=== PATIENT | female | born 1955 | race Caucasian/White ===

== ENCOUNTER 2018-09-05 10:56 | Observation (INO) | payer OTHER ==
[2018-09-05] MEDS ORDERED: FOLIC ACID 5 MG/ML 10 ML VIAL IM STA (11:17)
[2018-09-05] MEDS ORDERED: THIAMINE 100 MG/ML 2 ML VIAL IVP STA (11:17)
[2018-09-05] MEDS ORDERED: SODIUM CHLORIDE 0.9% 1,000 ML IV ONE (11:17)
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
[2018-09-05 11:47] LABS: Basophils % (A) 1 %; Eosinophils # (A) 0.2 k/uL (0-0.7); Eosinophils % (A) 3 %; HCT 34.5 % (34.0-46.0); HGB 10.9 gm/dL (11.4-16.0); Lymphocytes # (A) 0.7 k/uL (1.0-4.8); Lymphocytes % (A) 11 %; MCH 32.4 pg (25.0-35.0); MCHC 31.7 g/dL (31.0-37.0); MCV 102.2 fL (80.0-100.0); Macrocytosis Slight; Mean Platelet Volume 7.3; Monocytes # (A) 0.4 k/uL (0-1.0); Monocytes % (A) 6 %; Neutrophils # (A) 5.1 k/uL (1.3-7.7); Neutrophils % (A) 77 %; Platelet Count 472 k/uL (150-450); RBC 3.38 m/uL (3.80-5.40); RDW 14.2 % (11.5-15.5); WBC 6.6 k/uL (3.8-10.6)
[2018-09-05 11:58] LABS: ALT 20 U/L (9-52); AST 23 U/L (14-36); African American GFR (CKD) >90 (>60 ml/min/1.73 sqM); Albumin 3.1 g/dL (3.5-5.0); Alkaline Phosphatase 243 U/L (38-126); Anion Gap 15 mmol/L; Blood Urea Nitrogen 5 mg/dL (7-17); Calcium 8.6 mg/dL (8.4-10.2); Carbon Dioxide 19 mmol/L (22-30); Chloride 104 mmol/L (98-107); Creatine Kinase 54 U/L (30-135); Glucose 89 mg/dL (74-99); Sodium 138 mmol/L (137-145); Total Bilirubin 0.5 mg/dL (0.2-1.3); Total Protein 5.5 g/dL (6.3-8.2)
[2018-09-05 12:02] LABS: Partial Thromboplastin Time 24.3 sec (22.0-30.0); Prothrombin Time 10.3 sec (9.0-12.0)
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
--- NOTE | 2018-09-05 12:10 | XR ---
EXAMINATION TYPE: XR chest 2V DATE OF EXAM: 09/05/2018 HISTORY: altered mental status. REFERENCE: Previous study dated 07/16/2015. FINDINGS: There has been interval sideplate and screw fixation of the proximal left humerus. There is evidence of an old fracture of the distal left clavicle. Heart size is upper limits of normal. There is some left basilar airspace disease either representing atelectasis or pneumonia. The right lung is clear. IMPRESSION: 1. LEFT BASILAR AIRSPACE DISEASE WITH A SMALL ASSOCIATED EFFUSION. 2. BORDERLINE CARDIOMEGALY. 3. POSTSURGICAL CHANGE.
[2018-09-05] MEDS ORDERED: POTASSIUM CHLORIDE ER 10 MEQ TAB.ER.PRT PO STA (12:56)
[2018-09-05] MEDS ORDERED: POTASSIUM CHLORIDE 20 MEQ in WATER FOR INJECTION 1 100ML.BAG IVPB STA (12:56)
[2018-09-05 13:10] LABS: Appearance,Urine Cloudy (Clear); Bilirubin,Urine 1+ (Negative); Blood,Urine Negative (Negative); Color,Urine Yellow; Glucose,Urine (UA) Negative (Negative); Ketones,Urine 4+ (Negative); Leukocyte Esterase,Urine Negative (Negative); Mucus,Urine Many /hpf; Nitrite,Urine Negative (Negative); Protein,Urine 1+ (Negative); RBC,Urine 1 /hpf (0-5); Specific Gravity,Urine 1.021 (1.001-1.035); Squamous Epithelial Cell,Urine 2 /hpf (0-4)
[2018-09-05 13:17] LABS: Amphetamine Screen,Urine Not Detected (NotDetected); Barbiturate Screen,Urine Detected (NotDetected); Benzodiazepines Screen,Urine Detected (NotDetected); Cocaine Screen,Urine Not Detected (NotDetected); Methadone Screen, Urine Not Detected (NotDetected); Opiate Screen,Urine Not Detected (NotDetected); Oxycodone Screen, Urine Not Detected (NotDetected); Phencyclidine Screen,Urine Not Detected (NotDetected); Tricyclic Antidepressant,Urine Not Detected (NotDetected); Urn Cannabinoid Scrn Not Detected (NotDetected)
[2018-09-05] MEDS ORDERED: cefTRIAXone IN SWFI 1,000 MG/10 ML SYRINGE IVP STA (14:47)
[2018-09-05] MEDS ORDERED: PNEUMONIA PROTOCOL UTILIZED 1 EACH MISC PO PRN (14:49)
[2018-09-05] MEDS ORDERED: AZITHROMYCIN 500 MG in SODIUM CHLORIDE 0.9% 250 ML IVPB STA (14:49)
[2018-09-05] MEDS ORDERED: POLYETHYLENE GLYCOL 3350 17 GM POWD.PACK PO PRN (14:51)
[2018-09-05] MEDS ORDERED: LORazepam 2 MG/ML INJ IV STA (15:29)
[2018-09-05] MEDS ORDERED: Potassium Replacement Protocol 1 EACH MISC MISCELLANE PRN (16:44)
[2018-09-05] MEDS: SODIUM CHLORIDE 0.9% 1,000 ML IV SCH (17:00)
[2018-09-05] MEDS: MIRTAZAPINE 15 MG TAB PO SCH (17:36)
[2018-09-05] MEDS: ALPRAZolam 0.5 MG TAB PO PRN (18:10)
[2018-09-05] MEDS ORDERED: LORazepam 2 MG/ML INJ IV PRN (18:20)
[2018-09-05] MEDS: chlordiazePOXIDE 5 MG CAPSULE PO SCH (21:19)
[2018-09-05] MEDS: AMANTADINE HCL 100 MG/10 ML CUP PO SCH (21:20)
[2018-09-05] MEDS: GABAPENTIN 100 MG CAP PO SCH (21:30)
[2018-09-05] MEDS: MELATONIN 5 MG TABLET PO SCH (21:32)
[2018-09-06] MEDS: chlordiazePOXIDE 5 MG CAPSULE PO SCH ×3 (02:46→20:28)
[2018-09-06] MEDS: GABAPENTIN 100 MG CAP PO SCH ×2 (02:47→20:28)
[2018-09-06] MEDS: MELATONIN 5 MG TABLET PO SCH ×2 (02:47→20:28)
[2018-09-06] MEDS: ACETAMINOPHEN TAB 325 MG TAB PO PRN (05:50)
[2018-09-06] MEDS: SODIUM CHLORIDE 0.9% 1,000 ML IV SCH ×2 (06:13→20:29)
[2018-09-06] MEDS: THIAMINE 100 MG TAB PO SCH (07:32)
[2018-09-06] MEDS: ALPRAZolam 0.5 MG TAB PO PRN (07:32)
[2018-09-06] MEDS: ASPIRIN 81 MG PO SCH (07:32)
[2018-09-06] MEDS: CYANOCOBALAMIN 500 MCG TAB PO SCH (07:33)
[2018-09-06] MEDS: AZITHROMYCIN 500 MG TAB PO SCH (07:33)
[2018-09-06] MEDS: PROPRANOLOL LA 60 MG CAP.SA.24H PO SCH (07:33)
[2018-09-06] MEDS: AMANTADINE HCL 100 MG/10 ML CUP PO SCH ×2 (07:33→20:28)
[2018-09-06] MEDS ORDERED: MENTHOL TOPICAL SCH (09:00)
[2018-09-06] MEDS ORDERED: METHYL SALICYLATE TOPICAL SCH (09:00)
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
[2018-09-06] MEDS: LORazepam 2 MG/ML INJ IV PRN ×2 (11:17→16:34)
[2018-09-06] MEDS: LIDOCAINE 5% PATCH TOPICAL SCH (11:18)
[2018-09-06] MEDS: MIRTAZAPINE 15 MG TAB PO SCH (16:33)
[2018-09-07] MEDS: LORazepam 2 MG/ML INJ IV PRN ×2 (01:05→10:11)
[2018-09-07] MEDS: SODIUM CHLORIDE 0.9% 1,000 ML IV SCH ×2 (05:25→16:46)
[2018-09-07] MEDS: AMANTADINE HCL 100 MG/10 ML CUP PO SCH ×2 (08:16→21:04)
[2018-09-07] MEDS: ASPIRIN 81 MG PO SCH (08:16)
[2018-09-07] MEDS: AZITHROMYCIN 500 MG TAB PO SCH (08:16)
[2018-09-07] MEDS: PROPRANOLOL LA 60 MG CAP.SA.24H PO SCH (08:16)
[2018-09-07] MEDS: THIAMINE 100 MG TAB PO SCH (08:18)
[2018-09-07] MEDS: CYANOCOBALAMIN 500 MCG TAB PO SCH (08:18)
[2018-09-07] MEDS: chlordiazePOXIDE 5 MG CAPSULE PO SCH ×2 (08:18→21:04)
[2018-09-07] MEDS: LIDOCAINE 5% PATCH TOPICAL SCH (08:18)
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
[2018-09-07] MEDS: MIRTAZAPINE 15 MG TAB PO SCH (16:51)
[2018-09-07] MEDS: QUEtiapine 25 MG TAB PO SCH (21:03)
[2018-09-07] MEDS: MELATONIN 5 MG TABLET PO SCH (21:03)
[2018-09-07] MEDS: GABAPENTIN 100 MG CAP PO SCH (21:03)
[2018-09-07] MEDS: LORazepam 0.5 MG TAB PO PRN (23:08)
[2018-09-08] MEDS: SODIUM CHLORIDE 0.9% 1,000 ML IV SCH ×2 (05:26→17:28)
[2018-09-08] MEDS: ASPIRIN 81 MG PO SCH (08:04)
[2018-09-08] MEDS: THIAMINE 100 MG TAB PO SCH (08:04)
[2018-09-08] MEDS: AZITHROMYCIN 500 MG TAB PO SCH (08:04)
[2018-09-08] MEDS: CYANOCOBALAMIN 500 MCG TAB PO SCH (08:04)
[2018-09-08] MEDS: AMANTADINE HCL 100 MG/10 ML CUP PO SCH ×2 (08:04→20:34)
[2018-09-08] MEDS: LIDOCAINE 5% PATCH TOPICAL SCH (08:05)
[2018-09-08] MEDS: PROPRANOLOL LA 60 MG CAP.SA.24H PO SCH (08:06)
[2018-09-08] MEDS: chlordiazePOXIDE 5 MG CAPSULE PO SCH ×2 (08:06→20:33)
[2018-09-08] MEDS ORDERED: ERGOCALCIFEROL 50,000 UNIT CAP PO SCH (09:00)
[2018-09-08] MEDS: LORazepam 0.5 MG TAB PO PRN (09:24)
--- NOTE | 2018-09-08 10:00 | P.PN ---
Subjective Progress Note Date: 09/08/18 Principal diagnosis: TBI h/o SDH, resolved No acute events O/N. Patient again wishes to go home. States she has a to go to at 1pm and that her cousin . Also c/o losing jewelry in the hospital. No new neuro c/o. Objective - Vital Signs Vital signs: Vital Signs Temp 98.0 F 09/08/18 06:20 Pulse 69 09/08/18 06:20 Resp 16 09/08/18 08:00 BP 97/58 09/08/18 06:20 Pulse Ox 97 09/08/18 06:20 Intake & Output 09/07/18 09/08/18 09/08/18 18:59 06:59 18:59 Intake Total 200 Balance 200 Intake: Oral 200 Other: Voiding Method Bedside Commode Bedside Commode # Voids 1 2 # Bowel Movements 1 2 - Exam Gen NAD Pleasant and cooperative MS A+Ox2 Rambling and tangential speech though very focused on leaving the h ospital CN II-XII grossly intact no nystagmus Motor Normal bulk/tone No tremors NARAYANAN x4 Sens Intact to LT x4 Coord Not tested DTRs 2+/4 sym throughout Gait Deferred - Labs CBC & Chem 7: 09/05/18 11:28 09/05/18 11:28 Labs: Microbiology - Last 24 Hours (Table) 09/05/18 15:15 Blood Culture - Preliminary Blood No Growth after 48 hours 09/07/18 B12 454 RPR NR Assessment and Plan Assessment: AMS h/o TBI/SDH- SDH has resolved. TBI and behavioral symptoms will take longer to resolve. Plan: -CT Head wo cont reviewed with patient and primary team. SDH has resolved and she does not have evidence of new ICH or anything else acute -Agree with prn instead of scheduled benzodiazepine -Would recommend psychiatry's input for behavioral management -Continue thiamine, B12 and amantadine -Metabolic labs all unrevealing -Fall precautions -PT/OT/SP. Will need continued rehab -d/w patient and primary team. All questions answered -No further inpatient neuro recs at this time. Will revisit prn. Thank you again for this consultation. Please call with ?. Time with Patient: Less than 30 (Time spent in direct patient care, greater than 50% of which was spent in [id number] counseling and coordination of care: 25 minutes.)
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
[2018-09-08 16:18] VITALS: BMI 22.4
[2018-09-08] MEDS: MIRTAZAPINE 15 MG TAB PO SCH (17:27)
[2018-09-08] MEDS: GABAPENTIN 100 MG CAP PO SCH (20:33)
[2018-09-08] MEDS: ACETAMINOPHEN TAB 325 MG TAB PO PRN (20:33)
[2018-09-08] MEDS: MELATONIN 5 MG TABLET PO SCH (20:33)
[2018-09-08] MEDS: QUEtiapine 25 MG TAB PO SCH (20:33)
[2018-09-09] MEDS: ACETAMINOPHEN TAB 325 MG TAB PO PRN (04:32)
[2018-09-09] MEDS: AMANTADINE HCL 100 MG/10 ML CUP PO SCH ×3 (04:34→21:28)
[2018-09-09] MEDS: chlordiazePOXIDE 5 MG CAPSULE PO SCH ×3 (04:35→21:29)
[2018-09-09] MEDS: MELATONIN 5 MG TABLET PO SCH ×2 (04:36→21:29)
[2018-09-09] MEDS: QUEtiapine 25 MG TAB PO SCH ×2 (04:36→21:29)
[2018-09-09] MEDS: GABAPENTIN 100 MG CAP PO SCH ×2 (04:36→21:29)
[2018-09-09] MEDS: AZITHROMYCIN 500 MG TAB PO SCH (06:55)
[2018-09-09] MEDS: THIAMINE 100 MG TAB PO SCH (06:55)
[2018-09-09] MEDS: LORazepam 0.5 MG TAB PO PRN (06:55)
[2018-09-09] MEDS: ASPIRIN 81 MG PO SCH (06:55)
[2018-09-09] MEDS: CYANOCOBALAMIN 500 MCG TAB PO SCH (06:56)
[2018-09-09] MEDS: PROPRANOLOL LA 60 MG CAP.SA.24H PO SCH (06:57)
[2018-09-09] MEDS: SODIUM CHLORIDE 0.9% 1,000 ML IV SCH (06:58)
[2018-09-09] MEDS: LIDOCAINE 5% PATCH TOPICAL SCH (06:58)
[2018-09-09] MEDS: MIRTAZAPINE 15 MG TAB PO SCH (15:15)
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
[2018-09-09] MEDS ORDERED: LORazepam 2 MG/ML INJ IV STA (19:18)
[2018-09-09] MEDS ORDERED: HALOPERIDOL LACTATE 5 MG/ML 1 ML VIAL IM ONE (21:39)
[2018-09-10] MEDS: CYANOCOBALAMIN 500 MCG TAB PO SCH (07:56)
[2018-09-10] MEDS: ASPIRIN 81 MG PO SCH (07:56)
[2018-09-10] MEDS: PROPRANOLOL LA 60 MG CAP.SA.24H PO SCH (07:57)
[2018-09-10] MEDS: THIAMINE 100 MG TAB PO SCH (07:57)
[2018-09-10] MEDS: chlordiazePOXIDE 5 MG CAPSULE PO SCH ×2 (07:57→20:33)
[2018-09-10] MEDS: AZITHROMYCIN 500 MG TAB PO SCH (07:57)
[2018-09-10] MEDS: LIDOCAINE 5% PATCH TOPICAL SCH ×3 (07:57→10:05)
[2018-09-10] MEDS: AMANTADINE HCL 100 MG/10 ML CUP PO SCH (07:57)
[2018-09-10] MEDS: LORazepam 0.5 MG TAB PO PRN (11:05)
[2018-09-10] MEDS: ACETAMINOPHEN TAB 325 MG TAB PO PRN (15:19)
[2018-09-10] MEDS: MIRTAZAPINE 15 MG TAB PO SCH (16:22)
[2018-09-10] MEDS: MELATONIN 5 MG TABLET PO SCH (20:33)
[2018-09-10] MEDS: GABAPENTIN 100 MG CAP PO SCH (20:33)
[2018-09-10] MEDS: QUEtiapine 25 MG TAB PO SCH (20:33)
[2018-09-11] MEDS: AMANTADINE HCL 100 MG/10 ML CUP PO SCH ×2 (01:11→07:34)
[2018-09-11] MEDS: LORazepam 0.5 MG TAB PO PRN (01:12)
[2018-09-11 06:39] VITALS: RESP 17; TEMP 98
[2018-09-11] MEDS: THIAMINE 100 MG TAB PO SCH (07:33)
[2018-09-11] MEDS: AZITHROMYCIN 500 MG TAB PO SCH (07:34)
[2018-09-11] MEDS: ASPIRIN 81 MG PO SCH (07:34)
[2018-09-11] MEDS: PROPRANOLOL LA 60 MG CAP.SA.24H PO SCH (07:34)
[2018-09-11] MEDS: CYANOCOBALAMIN 500 MCG TAB PO SCH (07:34)
[2018-09-11] MEDS: chlordiazePOXIDE 5 MG CAPSULE PO SCH (07:34)
[2018-09-11 07:39] VITALS: BP 111/63; PULSE 86
[2018-09-11] MEDS: LIDOCAINE 5% PATCH TOPICAL SCH (07:40)
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
[2018-09-11 10:08] LABS: HCT 37.6 % (34.0-46.0); HGB 11.9 gm/dL (11.4-16.0); Hypochromasia Slight; MCH 32.8 pg (25.0-35.0); MCHC 31.7 g/dL (31.0-37.0); MCV 103.5 fL (80.0-100.0); Macrocytosis Slight; Mean Platelet Volume 7.6; Platelet Count 338 k/uL (150-450); RBC 3.63 m/uL (3.80-5.40); WBC 7.6 k/uL (3.8-10.6)
[2018-09-11 10:24] LABS: ALT 15 U/L (9-52); AST 18 U/L (14-36); African American GFR (CKD) >90 (>60 ml/min/1.73 sqM); Alkaline Phosphatase 209 U/L (38-126); Anion Gap 15 mmol/L; Blood Urea Nitrogen 3 mg/dL (7-17); Calcium 8.9 mg/dL (8.4-10.2); Carbon Dioxide 21 mmol/L (22-30); Chloride 106 mmol/L (98-107); Glucose 129 mg/dL (74-99); Potassium 2.9 mmol/L (3.5-5.1); Sodium 142 mmol/L (137-145); Total Bilirubin 0.4 mg/dL (0.2-1.3); Total Protein 5.4 g/dL (6.3-8.2)
[2018-09-11] MEDS: POTASSIUM CHLORIDE ER 20 MEQ TAB.ER PO SCH ×3 (11:21→13:23)
== END 2018-09-11 14:15 ==
LOC: EC 10:56 → UNDOADMOB 14:50 → 4MS4W 14:50 → INTOOBSV 09-07 13:25 → OBSVTOIN 09-07 13:25 → UNDODISIN 09-11 14:15
PROVIDERS: ADMIT Internal Medicine; ATTEND Internal Medicine
DX: J18.9 Pneumonia, unspecified organism (principal); G93.41 Metabolic encephalopathy; F33.9 Major depressive disorder, recurrent, unspecified; F10.231 Alcohol dependence with withdrawal delirium; E86.0 Dehydration; I10 Essential (primary) hypertension; R62.7 Adult failure to thrive; S06.5X9D Traumatic subdural hemorrhage with loss of consciousness of unspecified duration, subsequent encounter; V29.9XXD Motorcycle rider (driver) (passenger) injured in unspecified traffic accident, subsequent encounter; S22.42XD Multiple fractures of ribs, left side, subsequent encounter for fracture with routine healing; Z79.82 Long term (current) use of aspirin; Z79.899 Other long term (current) drug therapy; Z82.0 Family history of epilepsy and other diseases of the nervous system; Z82.49 Family history of ischemic heart disease and other diseases of the circulatory system; Z87.891 Personal history of nicotine dependence; S42.009D Fracture of unspecified part of unspecified clavicle, subsequent encounter for fracture with routine healing; R13.10 Dysphagia, unspecified
CPT/HCPCS: 96376 ×4; 96361 ×6; 96366 ×4; 96367; 96372; 96365; 96375; 99285; 36415; 97116 ×2; 97530 ×2; 97162; 97535 ×2; 97167; 92523; 80053 ×2; 84443; 82607; 82140; 82550; 83735; 84484; 85025; 85027; 85610; 85730; 81001; 87040; 86780; 80306; 71046; 70450; G0378 ×7; G0515 ×2; J2060 ×4; J1630; J3480; J0456; J0696 ×5

== ENCOUNTER → 2019-11-12 | Outpatient (CLI) | payer OTHER ==
--- NOTE | 2019-11-15 09:30 | MM ---
Reason for exam: screening (asymptomatic). Last mammogram was performed 11 years and 10 months ago. History: Patient is postmenopausal. Took hormonal contraceptives for 3 months beginning at age 18. Physical Findings: A clinical breast exam by your physician is recommended on an annual basis and results should be correlated with mammographic findings. MG Screening Mammo w CAD Bilateral CC and MLO view(s) were taken. Prior study comparison: January 15, 2008, bilateral diagnostic digital mammog. The breast tissue is heterogeneously dense. This may lower the sensitivity of mammography. Finding #1: There is a 6 mm circumscribed round mass in the upper outer quadrant, posterior position of the left breast. Finding #2: There are typically benign vascular, dystrophic, round calcifications in both breasts. Focal asymmetry left subareolar. ASSESSMENT: Incomplete: need additional imaging evaluation, BI-RAD 0 RECOMMENDATION: Special view mammogram and ultrasound of the left breast. [facility] will attempt to contact patient to return for supplemental views and ultrasound.
== END | disposition home or self-care (01) ==
LOC: RADMAMWWP 09:28
PROVIDERS: ATTEND Family Medicine
DX: Z12.31 Encounter for screening mammogram for malignant neoplasm of breast (principal)
CPT/HCPCS: 77067

== ENCOUNTER → 2019-11-26 | Outpatient (CLI) | payer OTHER ==
--- NOTE | 2019-11-29 11:03 | MM ---
Reason for exam: additional evaluation requested from abnormal screening. Last mammogram was performed less than 1 month ago. History: Patient is postmenopausal. Took hormonal contraceptives for 3 months beginning at age 18. Physical Findings: Nurse did not find any significant physical abnormalities on exam. MG Work Up Mamm w CAD LT CC and MLO view(s) were taken of the left breast. Prior study comparison: November 12, 2019, bilateral MG screening mammo w CAD. January 15, 2008, bilateral diagnostic digital mammog. Finding: There is a 7 mm circumscribed round mass located 7-8 cm from the nipple in the upper outer quadrant, posterior position of the left breast persists on additional views. These results were verbally communicated with the patient and result sheet given to the patient on 11/26/19. ASSESSMENT: Incomplete: need additional imaging evaluation, BI-RAD 0 RECOMMENDATION: Ultrasound of the left breast.
--- NOTE | 2019-11-29 11:05 | USB ---
Reason for exam: additional evaluation requested from abnormal screening. History: Patient is postmenopausal. Took hormonal contraceptives for 3 months beginning at age 18. US Breast Workup Limited LT Left limited breast ultrasound including focal area of concern, retroareolar and axilla demonstrates a 0.5 x 0.5 x 0.4cm solid, hypoechoic lesion at 2 o'clock. These results were verbally communicated with the patient and result sheet given to the patient on 11/26/19. ASSESSMENT: Benign, BI-RAD 2 RECOMMENDATION: Return to routine screening mammogram schedule for both breasts.
== END | disposition home or self-care (01) ==
LOC: RADMAMWWP 14:52
PROVIDERS: ATTEND Family Medicine
DX: R92.8 Other abnormal and inconclusive findings on diagnostic imaging of breast (principal)
CPT/HCPCS: 77065

== ENCOUNTER → 2019-12-31 | Outpatient (CLI) | payer OTHER ==
[2019-12-31 09:05] VITALS: BP 163/94; PULSE 86; RESP 18; TEMP 98.1
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
== END | disposition home or self-care (01) ==
LOC: WWCWWP 08:53
PROVIDERS: ATTEND Surgery
DX: Z53.9 Procedure and treatment not carried out, unspecified reason (principal)

== ENCOUNTER → 2020-01-04 | Day surgery (SDC) | payer OTHER ==
[2020-01-04 10:09] VITALS: RESP 16; TEMP 98.3
[2020-01-04 11:29] VITALS: BP 147/77; PULSE 75
--- NOTE | 2020-01-04 14:13 | MM ---
EXAMINATION TYPE: US biopsy breast VAD LT DATE OF EXAM: 01/04/2020 CLINICAL HISTORY: R92.8, Abnormal mammogram. TECHNIQUE: Ultrasound guided vaccuum assisted core biopsy of left breast. COMPARISON: NONE FINDINGS: The ultrasound guided core biopsy procedure was explained to the patient. The risks, benef its, alternatives were discussed. An informed consent was then obtained. Timeout was performed. The patient was placed in supine positioning for imaging and for the procedure. The overlying skin w as prepped with betadine and sterilely draped in usual sterile fashion. Lidocaine 1% was used as ane sthetic into the skin and deeper breast tissue up to area of concern in the breast. A small skin marilyn k was made with surgical scalpel. Under ultrasound guidance, a 12-gauge vacuum assisted biopsy device was used to obtain 3 core samples . A biopsy clip was left in lesion. Wing clip was utilized Good hemostasis was obtained with direct pressure. Discharge instructions were discussed with the catarina clark. The patient will follow up with the referring physician for results. Postprocedure mammogram: The patient was transferred to mammography for physician ordered post proced ure mammogram for clip placement verification. The clip is in the expected region of the biopsy. The patient tolerated the procedure well without any immediate complication. The patient was dischar ged to home in stable condition. IMPRESSION: 1. Successful ultrasound guided biopsy left breast. Recommendations: 1. Recommendations are pending pathology results.
--- NOTE | 2020-01-04 14:13 | USB ---
EXAMINATION TYPE: US biopsy breast VAD LT DATE OF EXAM: 01/04/2020 CLINICAL HISTORY: R92.8, Abnormal mammogram. TECHNIQUE: Ultrasound guided vaccuum assisted core biopsy of left breast. COMPARISON: NONE FINDINGS: The ultrasound guided core biopsy procedure was explained to the patient. The risks, benefits, alternatives were discussed. An informed consent was then obtained. Timeout was performed. The patient was placed in supine positioning for imaging and for the procedure. The overlying skin was prepped with betadine and sterilely draped in usual sterile fashion. Lidocaine 1% was used as anesthetic into the skin and deeper breast tissue up to area of concern in the breast. A small skin brijesh was made with surgical scalpel. Under ultrasound guidance, a 12-gauge vacuum assisted biopsy device was used to obtain 3 core samples. A biopsy clip was left in lesion. Wing clip was utilized Good hemostasis was obtained with direct pressure. Discharge instructions were discussed with the patient. The patient will follow up with the referring physician for results. Postprocedure mammogram: The patient was transferred to mammography for physician ordered post procedure mammogram for clip placement verification. The clip is in the expected region of the biopsy. The patient tolerated the procedure well without any immediate complication. The patient was discharged to home in stable condition. IMPRESSION: 1. Successful ultrasound guided biopsy left breast. Recommendations: 1. Recommendations are pending pathology results. Pathology Results: Benign LEFT BREAST, ULTRASOUND GUIDED CORE BIOPSY: Fibroadenoma. Recommendation Follow up ultrasound of the left breast in 6 months. CYRUS
== END ==
LOC: RADUSWWP 09:43
PROVIDERS: ATTEND Surgery
DX: D24.2 Benign neoplasm of left breast (principal)
CPT/HCPCS: 88305; 77065; 19083; A4648

== ENCOUNTER → 2020-01-21 | Outpatient (CLI) | payer OTHER ==
[2020-01-21 15:56] VITALS: BP 137/83; PULSE 76; RESP 16; TEMP 98.3
--- NOTE | 2020-01-21 16:03 | P.PN ---
Progress Note - Text Progress Note Date: 01/21/20 Joselyn is a 63-year-old white female status post ultrasound-guided core biopsy left breast on . Pathology revealed a fibroadenoma. Patient has no complaints related to the procedure. Was done based on a bilateral mammogram done on 11-12-19. Physical exam: biopsy site clean and dry No evidence of infection or hematoma Impression: 1. Fibroadenoma left breast ultrasound core biopsy on Plan: 1. Repeat left breast mammogram and ultrasound in 6 months with physician exam at that time Cc: Dr. Pimentel encounter 10 minutes, > 50% of time in planning and counselling
== END | disposition home or self-care (01) ==
LOC: WWCWWP 15:48
PROVIDERS: ATTEND Surgery
DX: Z53.9 Procedure and treatment not carried out, unspecified reason (principal)

== ENCOUNTER → 2020-02-22 | Outpatient (CLI) | payer OTHER ==
[2020-02-22 14:31] LABS: Basophils # (A) 0.1 k/uL (0-0.2); Basophils % (A) 1 %; Eosinophils # (A) 0.1 k/uL (0-0.7); Eosinophils % (A) 1 %; HGB 13.9 gm/dL (11.4-16.0); Lymphocytes # (A) 1.2 k/uL (1.0-4.8); Lymphocytes % (A) 28 %; MCH 33.8 pg (25.0-35.0); MCV 102.4 fL (80.0-100.0); Mean Platelet Volume 7.2; Monocytes # (A) 0.3 k/uL (0-1.0); Monocytes % (A) 7 %; Neutrophils # (A) 2.6 k/uL (1.3-7.7); Neutrophils % (A) 60 %; Platelet Count 230 k/uL (150-450); RDW 12.3 % (11.5-15.5); WBC 4.2 k/uL (3.8-10.6)
[2020-02-22 21:32] LABS: African American GFR (CKD) 90.3 (60.0-200.0); Albumin 4.6 g/dL (3.80-4.90); Albumin/Globulin Ratio 2.56 (1.60-3.17); Anion Gap 12.5 mmol/L (4.00-12.00); BUN/Creat Ratio 7.5 Ratio (12.00-20.00); Carbon Dioxide 24.5 mmol/L (21.6-31.8); Globulin 1.8 g/dL (1.6-3.3); Non-African American GFR(CKD) 77.9 (60.0-200.0); Potassium 4.3 mmol/L (3.5-5.5); Total Bilirubin 0.5 mg/dL (0.3-1.2); Total Protein 6.4 g/dL (6.2-8.2)
== END | disposition home or self-care (01) ==
LOC: LABWHC1 14:02
PROVIDERS: ATTEND Physician Assistant
DX: L70.0 Acne vulgaris (principal)
CPT/HCPCS: 36415; 80053; 82465; 85025

== ENCOUNTER → 2020-03-08 | Outpatient (CLI) | payer OTHER ==
--- NOTE | 2020-03-08 11:20 | US ---
EXAMINATION TYPE: US abdomen complete DATE OF EXAM: 03/08/2020 COMPARISON: NONE CLINICAL HISTORY: R79.89 elevated LFT'S. elevated LFTS exam limited due to bowel gas and ribs. EXAM MEASUREMENTS: Liver Length: 12 cm Gallbladder Wall: .2 cm CBD: .5 cm Spleen: 11 cm Right Kidney: 9.4 x 4.5 x 3.9 cm Left Kidney: 9.6 x 4.4 x 4.0 cm Pancreas: Obscured by bowel gas Liver: Limited . Some mild fatty infiltration may be present. Gallbladder: Limited Evidence for sonographic Wynne's sign: No CBD: wnl Spleen: Limited Right Kidney: No hydronephrosis or masses seen Left Kidney: No hydronephrosis or masses seen Upper IVC: wnl Abd Aorta: wnl IMPRESSION: 1. Mild fatty infiltration of the liver.
== END | disposition home or self-care (01) ==
LOC: RADUSWWP 08:50
PROVIDERS: ATTEND Family Medicine
DX: K76.0 Fatty (change of) liver, not elsewhere classified (principal)
CPT/HCPCS: 76700

== ENCOUNTER 2020-04-13 08:47 | Day surgery (SDC) | payer OTHER ==
[2020-04-11 13:15] VITALS: BMI 22.8
[~2020-04-13 08:47] MED LIST: LACTATED RINGERS 1,000 ML IV SCH; LIDOCAINE 1% (10MG/ML) FOR IV START INTRADERMA PRN
[2020-04-13 10:06] VITALS: RESP 18; TEMP 97.8
[2020-04-13] MEDS ORDERED: PROPOFOL 10 MG/ML 20 ML VIAL IV ONE (10:26)
[2020-04-13] MEDS ORDERED: GLUCAGON 1 MG/ML VIAL ONE (10:26)
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
--- NOTE | 2020-04-13 10:45 | P.OP ---
Date of Procedure: 04/13/20 Preoperative Diagnosis: Screening colonoscopy Postoperative Diagnosis: Diverticulosis Procedure(s) Performed: Colonoscopy Anesthesia: MAC Surgeon: Antonio Gregory Pathology: none sent Condition: stable Disposition: PACU Description of Procedure: The patient's placed on the endoscopy table in the lateral position. She received IV sedation. Digital rectal exam was performed which revealed no abnormalities. The flexible colonoscope was then placed patient anus passed throughout the entire colon. The ileocecal valve sutures. The cecum, ascending and transverse colon appeared normal. In the descending; there is moderate diverticulosis. The scope was then brought back back the rectum and this hien eared normal. Scope was withdrawn for patient.
[2020-04-13 11:13] VITALS: BP 167/84; PULSE 72
== END 2020-04-13 11:30 | disposition home or self-care (01) ==
LOC: ORWHC2ENDO 08:47
PROVIDERS: ATTEND Surgery
DX: Z12.11 Encounter for screening for malignant neoplasm of colon (principal); K57.30 Diverticulosis of large intestine without perforation or abscess without bleeding; L71.9 Rosacea, unspecified; R13.10 Dysphagia, unspecified; R41.3 Other amnesia; M19.90 Unspecified osteoarthritis, unspecified site; Z87.820 Personal history of traumatic brain injury; Z87.81 Personal history of (healed) traumatic fracture; Z98.890 Other specified postprocedural states; Z82.0 Family history of epilepsy and other diseases of the nervous system; Z82.49 Family history of ischemic heart disease and other diseases of the circulatory system; Z79.899 Other long term (current) drug therapy
CPT/HCPCS: J1610; J2704; G0121

== ENCOUNTER → 2020-07-24 | Outpatient (CLI) | payer OTHER ==
--- NOTE | 2020-07-25 08:59 | MM ---
Reason for exam: follow-up at short interval from prior study. Last mammogram was performed 7 months ago. History: Patient is postmenopausal. Benign US biopsy breast VAD LT of the left breast, January 04, 2020. Took hormonal contraceptives for 3 months beginning at age 18. Physical Findings: Nurse did not find any significant physical abnormalities on exam. MG Diagnostic Mammo LT w CAD CC and MLO view(s) were taken of the left breast. Prior study comparison: January 04, 2020, left breast MG diagnostic mammo LT wo CAD. November 26, 2019, left breast MG work up mamm w CAD LT. The breast tissue is heterogeneously dense. This may lower the sensitivity of mammography. Previous mammotome biopsy in the left breast. Stable grouped coarse calcifications 11 o'clock, unchanged for 6 months. 4mm nodule upper outer quadrant likely present on the previous MLO view, now better seen on CC. 6 month follow up recommended. These results were verbally communicated with the patient and result sheet given to the patient on 07/24/20. ASSESSMENT: Incomplete: need additional imaging evaluation, BI-RAD 0 RECOMMENDATION: Ultrasound of the left breast.
--- NOTE | 2020-07-25 09:02 | USB ---
Reason for exam: additional evaluation requested from abnormal screening. History: Patient is postmenopausal. Benign US biopsy breast VAD LT of the left breast, January 04, 2020. Took hormonal contraceptives for 3 months beginning at age 18. US Breast Limited LT Left limited breast ultrasound including focal area of concern, retroareolar and axilla demonstrates a 0.4 x 0.3 x 0.4cm lesion too small to characterize at 2 o'clock, likely mammographic correlate and a 0.4 x 0.3 x 0.5cm hypoechoic lesion at 2 o'clock, recently biopsied fibroadenoma. 6 month follow up mammogram. Scanned 12-3 o'clock. These results were verbally communicated with the patient and result sheet given to the patient on 07/24/20. ASSESSMENT: Probably benign, BI-RAD 3 RECOMMENDATION: Follow-up diagnostic mammogram of both breasts in 6 months. (right annual exam, left 1 year follow up 11 o'clock calcifications, 6 month follow up upper outer quadrant focal asymmetry)
== END | disposition home or self-care (01) ==
LOC: RADMAMWWP 14:00
PROVIDERS: ATTEND Surgery
DX: N63.21 Unspecified lump in the left breast, upper outer quadrant (principal); R92.1 Mammographic calcification found on diagnostic imaging of breast; N64.59 Other signs and symptoms in breast; Z78.0 Asymptomatic menopausal state
CPT/HCPCS: 77065

== ENCOUNTER → 2020-07-28 | Outpatient (CLI) | payer OTHER ==
[2020-07-28 12:09] VITALS: BP 158/90; PULSE 69; RESP 12; TEMP 98
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
== END ==
LOC: WWCWWP 11:47
PROVIDERS: ATTEND Surgery
DX: N60.12 Diffuse cystic mastopathy of left breast (principal); N60.11 Diffuse cystic mastopathy of right breast; Z87.820 Personal history of traumatic brain injury

== ENCOUNTER → 2020-10-26 | Outpatient (CLI) | payer OTHER ==
--- NOTE | 2020-10-26 14:05 | CT ---
EXAMINATION TYPE: CT abdomen pelvis w con DATE OF EXAM: 10/26/2020 HISTORY: Elevated LFT'S, dysuria CT DLP: 882mGycm Automated Exposure Control for Dose Reduction was Utilized. CONTRAST: CT scan of the abdomen and pelvis is performed with oral and with IV Contrast, patient injected with 100 mL of Isovue 300. COMPARISON: Ultrasound abdomen MARCH 08, 2020. FINDINGS: LUNG BASES: Mild bibasilar linear scarring and/or atelectasis. LIVER/GB: Roughly 1.5 cm low dense lesion left hepatic lobe axial image 19 is nonspecific smaller sub centimeter lesion noted axial image 22. No suspicious biliary dilatation. PANCREAS: No significant abnormality is seen. SPLEEN: Nonspecific subcentimeter hypodense lesion in the periphery of the spleen on axial image 33 t oo small to further characterizes presumed benign. ADRENALS: No significant abnormality is seen. KIDNEYS: Symmetric cortical medullary uptake and excretion without hydronephrosis seen bilaterally. BOWEL: Small diverticulum proximal duodenum axial image 27 with tiny air-fluid level. No suspicious s mall or large bowel dilatation. Normal-appearing appendix from base of cecum right pelvis. Oral contr ast reaches level of the splenic flexure. Few scattered distal colonic diverticula. No CT evidence fo r acute diverticulitis. UTERUS/ADNEXA: Anteverted uterus. LYMPH NODES: No greater than 1cm abdominal or pelvic lymph nodes are appreciated. OSSEOUS STRUCTURES: Moderate axial joint space loss in both hips. Mild to moderate chronic compressio n fracture at L1 level at peak of underlying scoliosis. OTHER: No significant additional abnormality is seen. IMPRESSION: 1. Somewhat small size liver with 2 nonspecific small hypodense lesions favor benign in etiology. No biliary dilatation. Mild underlying fatty infiltration is suspected. 2. Source of dysuria not identified.
== END | disposition home or self-care (01) ==
LOC: RADCTMAIN 09:57
PROVIDERS: ATTEND Family Medicine
DX: K76.9 Liver disease, unspecified (principal); R79.89 Other specified abnormal findings of blood chemistry; R30.0 Dysuria; R31.0 Gross hematuria
CPT/HCPCS: 74177; Q9967

== ENCOUNTER → 2021-01-25 | Outpatient (CLI) | payer OTHER ==
--- NOTE | 2021-01-25 13:44 | MM ---
Reason for exam: follow-up at short interval from prior study. Last mammogram was performed 6 months ago. History: Patient is postmenopausal. Benign US biopsy breast VAD LT of the left breast, January 04, 2020. Took hormonal contraceptives for 3 years beginning at age 18. Physical Findings: Nurse did not find any significant physical abnormalities on exam. MG Diagnostic Mammo w CAD TABITHA Bilateral CC and MLO view(s) were taken. Spot compression CC, spot compression MLO, and LM view(s) were taken of the left breast. Prior study comparison: July 24, 2020, left breast MG diagnostic mammo LT w CAD. January 04, 2020, left breast MG diagnostic mammo LT wo CAD. The breast tissue is heterogeneously dense. This may lower the sensitivity of mammography. Stable benign calcifications. Previous mammotome biopsy in the left breast. Persistent nodule upper outer left breast 6.7cm from nipple measuring 9mm. This finding is changed when compared with previous exams. ASSESSMENT: Incomplete: need additional imaging evaluation, BI-RAD 0 RECOMMENDATION: Ultrasound of the left breast.
--- NOTE | 2021-01-25 13:56 | USB ---
Reason for exam: additional evaluation requested from abnormal screening. History: Patient is postmenopausal. Benign US biopsy breast VAD LT of the left breast, January 04, 2020. Took hormonal contraceptives for 3 years beginning at age 18. US Breast Limited LT Left limited breast ultrasound including focal area of concern, retroareolar and axilla demonstrates a 0.5 x 0.3 x 0.5cm lesion at 2-3 o'clock and a 0.8 x 0.9 x 0.9cm solid lesion at 1 o'clock for which a biopsy is recommended. These results were verbally communicated with the patient and result sheet given to the patient on 01/25/21. ASSESSMENT: Suspicious, BI-RAD 4 RECOMMENDATION: Ultrasound core biopsy of the left breast. Called office with mammographic findings and has scheduled an appointment for the patient for 03/16/21 at 3:[address] Ortiz. Biopsy scheduled for 02/28/21 at 7:00. PRELIMINARY REPORT CALLED AND FAXED TO DR. ORTIZ ON 01/25/21.
== END | disposition home or self-care (01) ==
LOC: RADMAMWWP 10:54
PROVIDERS: ATTEND Surgery
DX: R92.8 Other abnormal and inconclusive findings on diagnostic imaging of breast (principal)
CPT/HCPCS: 77066

== ENCOUNTER → 2021-02-28 | Day surgery (SDC) | payer MEDICARE, OTHER ==
[2021-02-28 07:37] VITALS: RESP 16; TEMP 98
[2021-02-28 09:05] VITALS: BP 136/79; PULSE 79
--- NOTE | 2021-02-28 09:28 | USB ---
EXAMINATION TYPE: US biopsy breast VAD LT, MG diagnostic mammo LT wo CAD DATE OF EXAM: 02/28/2021 CLINICAL HISTORY: R92.8 abnormal mammogram. Abnormal ultrasound. TECHNIQUE: Ultrasound guided core biopsy of left breast with clip placement and follow-up diagnostic two-view mammogram. COMPARISON: Prior ultrasound and mammogram January 25, 2021 and older studies. FINDINGS: The procedure of ultrasound guided core biopsy was explained to the patient. Benefits, alternatives, and risks were discussed. An informed consent was then obtained. The patient was placed in supine positioning for imaging and for the procedure. Preprocedure ultrasound redemonstrates a portable paracolic lobulated peripheral hypervascular roughly 8 mm lesion at 1:00 position zone A left breast. Lidocaine is used as anesthetic into the skin and subcutaneous tissue . Lidocaine with epinephrine is used as anesthetic into the deeper tissue. Under ultrasound guidance, a vacuum assisted biopsy gun device was used to obtain 6 core samples using 2 devices. Lesion was mobile and had dense peripheral margin making it difficult to sample. Following this, a biopsy clip was left in lesion under ultrasound guidance. The patient tolerated the procedure well without any immediate complication. The patient was kept in the radiology department for short stay after the procedure and then discharged home in stable condition. Post procedure mammogram shows successful deployment of new clip upper outer quadrant anterior to the prior biopsy clip corresponding to the area of mammogram concern. IMPRESSION: Successful, uncomplicated ultrasound guided core biopsy of area of concern in left breast, full pathology results to follow. Intermediate to high index of suspicion noted at time of procedure. Pathology Results: Malignant A. LEFT BREAST, ONE O'CLOCK, ULTRASOUND GUIDED NEEDLE CORE BIOPSY: Invasive moderately differentiated ductal carcinoma (Grade 2) and focal low grade DCIS. See Surgical Pathology Cancer Case Summary. B. LEFT BREAST, ONE O'CLOCK SAME SITE, ULTRASOUND GUIDED NEEDLE CORE BIOPSY: Invasive moderately differentiated ductal carcinoma (Grade 2). See Surgical Pathology Cancer Case Summary. Recommendation Surgical consult of the left breast. JACQUELYND
== END ==
LOC: RADUSWWP 07:18
PROVIDERS: ATTEND Surgery
DX: C50.412 Malignant neoplasm of upper-outer quadrant of left female breast (principal)
CPT/HCPCS: 19083; 88305; 88342; 88341; 77065; A4648; J2001

== ENCOUNTER → 2021-03-16 | Outpatient (CLI) | payer OTHER ==
[2021-03-16 09:43] VITALS: BP 160/79; PULSE 61; RESP 18; TEMP 98.5
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
== END ==
LOC: WWCWWP 09:10
PROVIDERS: ATTEND Surgery
DX: Z53.9 Procedure and treatment not carried out, unspecified reason (principal)

== ENCOUNTER → 2021-04-19 | Outpatient (CLI) | payer MEDICARE, OTHER ==
[2021-04-19 09:18] VITALS: BP 134/76; PULSE 93; RESP 18; TEMP 98.4
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
== END | disposition home or self-care (01) ==
LOC: WWCWWP 08:58
PROVIDERS: ATTEND Surgery
DX: Z53.9 Procedure and treatment not carried out, unspecified reason (principal)

== ENCOUNTER → 2021-05-04 | Outpatient (CLI) | payer MEDICARE, OTHER ==
--- NOTE | 2021-05-04 10:36 | XR ---
EXAMINATION TYPE: XR ribs RT w pa chest xray DATE OF EXAM: 05/04/2021 CLINICAL HISTORY: Recent fall injury with chest and right rib pain. TECHNIQUE: Single frontal view of the chest is obtained. A frontal and oblique images of the right-si ded ribs. COMPARISON: Chest x-ray September 05, 2018 FINDINGS: Elevated right hemidiaphragm redemonstrated. There is no focal air space opacity, pleural e ffusion, or pneumothorax seen. The cardiac silhouette size is upper limits of normal. Surgical pino es left humerus is redemonstrated. There are multiple old left-sided rib fractures again seen. Dedicated images of the right-sided ribs redemonstrate old posterior right fourth rib fracture. Addit ional acute slightly displaced fractures of the lateral right mid ribs. This is difficult to further evaluate due to significant overlap even on the attempted oblique images. I suspect involvement of th e fifth through seventh ribs. IMPRESSION: 1. Acute slightly displaced fractures through the lateral right mid rib suspected fifth through seven th ribs. 2. Chronic changes without acute pulmonary process.
== END | disposition home or self-care (01) ==
LOC: RADXRMAIN 09:55
PROVIDERS: ATTEND Family Medicine
DX: R07.81 Pleurodynia (principal); Z91.81 History of falling

== ENCOUNTER 2021-05-08 06:22 | Day surgery (SDC) | payer MEDICARE, OTHER ==
[~2021-05-08 06:22] MED LIST changes: +HEPARIN SODIUM,PORCINE/PF 5,000 UNIT/0.5 ML SYRINGE SQ PRN; -LACTATED RINGERS 1,000 ML IV SCH; -LIDOCAINE 1% (10MG/ML) FOR IV START INTRADERMA PRN; +Pre Op ABX Message 1 EACH MISC MISCELLANE ONE
[2021-05-08] MEDS ORDERED: LACTATED RINGERS 1,000 ML IV SCH (07:03)
[2021-05-08] MEDS ORDERED: HYDROmorphone 0.5 MG/0.5 ML SYRINGE IVP PRN (07:03)
[2021-05-08] MEDS ORDERED: LIDOCAINE 1% (10MG/ML) FOR IV START INTRADERMA PRN (07:03)
[2021-05-08] MEDS ORDERED: ONDANSETRON 4 MG/2 ML VIAL IVP ONE (07:03)
[2021-05-08] MEDS ORDERED: DEXAMETHASONE SOD PHOSPHATE 4 MG/ML 1 ML VIAL IV ONE (07:03)
--- NOTE | 2021-05-08 07:57 | XR ---
EXAMINATION TYPE: XR chest 2V DATE OF EXAM: 05/08/2021 COMPARISON: 05/04/2021 and 09/05/2018 HISTORY: 66-year-old female rule out pneumothorax, preoperative evaluation. TECHNIQUE: Frontal and lateral views FINDINGS: Multiple left-sided rib fracture deformities redemonstrated. Pneumothorax not clearly identified. Asy mmetric elevation right hemidiaphragm is unchanged. Mild interstitial prominence has chronic appearan ce. Plate and screw fixation proximal left humerus. Heart upper limits of normal in size. IMPRESSION: 1. Multiple left-sided rib fracture deformities, suspected chronic. Clinically correlate to confirm. 2. A pneumothorax is not identified. 3. Chronic appearing changes. Unchanged asymmetric elevation right hemidiaphragm. If concern for jaime diaphragmatic paralysis, a fluoroscopic sniff test can be performed. 4. No definite acute process.
[2021-05-08] MEDS ORDERED: ALPRAZolam 0.25 MG TAB ONE (08:03)
[2021-05-08] MEDS ORDERED: ALPRAZolam 0.25 MG TAB PO ONE (08:05)
[2021-05-08] MEDS ORDERED: LIDOCAINE 1% INJ 10MG/ML (20 ML MDV) SQ ONE ×4 (08:45→12:02)
[2021-05-08] MEDS ORDERED: LIDOCAINE 1% INJ 10MG/ML (20 ML MDV) ONE (09:30)
[2021-05-08] MEDS ORDERED: PROPOFOL 10 MG/ML 20 ML VIAL IV ONE (09:30)
[2021-05-08] MEDS ORDERED: HYDROmorphone (PF) 1 MG/ML ONE (09:30)
[2021-05-08] MEDS ORDERED: fentaNYL (PF) 50 MCG/ML 2 ML AMP ONE (09:30)
[2021-05-08] MEDS ORDERED: MIDAZOLAM 2 MG/2 ML VIAL ONE (09:30)
[2021-05-08] MEDS ORDERED: SODIUM CHLORIDE 0.9% 100 ML with ceFAZolin 2,000 MG IV ONE ×2 (09:40)
--- NOTE | 2021-05-08 09:49 | P.PN ---
Progress Note - Text Progress Note Date: 05/08/21 Addendum to history and physical The patient fell approximately one week ago and developed acute right chest rib fractures. She did not have any pneumothorax. This was discussed with anesthesia and the chest x-ray was repeated today. On repeat chest x-ray again no pneumothorax was identified. It was felt she was safe to proceed with surgical intervention.
--- NOTE | 2021-05-08 09:49 | P.NAPBC ---
NAPBC Queries - NAPBC Queries Was patient's case review presented at [facility] tumor board? If no, comment.: Yes Was patient's pathology reviewed at [facility]? If no, comment.: Yes Was breast conservation surgery offered? If no, comment.: Yes Was sentinel node biopsy offered? If no, comment.: Yes Was diagnosis confirmed by percutaneous core biopsy? If no, comment.: Yes Is patient mastectomy patient?: No Was a preop referral to reconstructive surgeon offered?: No Clinical Stage: Stage I a left breast invasive ductal carcinoma
[2021-05-08] MEDS ORDERED: LACTATED RINGERS 1,000 ML IV ONE (10:40)
--- NOTE | 2021-05-08 12:12 | P.OP ---
Date of Procedure: 05/08/21 Preoperative Diagnosis: Stage I a left breast invasive ductal carcinoma Postoperative Diagnosis: Same Procedure(s) Performed: Left breast sentinel node biopsy, needle localization lumpectomy, onco-plastic tissue transfer 47 cm, donut mastopexy eccentric Anesthesia: GETA Surgeon: Kandi Ortiz Estimated Blood Loss (ml): 5 IV fluids (ml): 900 Pathology: other ([place] lymph node, lumpectomy) Condition: stable Disposition: same day Indications for Procedure: Biopsy-proven left breast invasive ductal carcinoma Operative Findings: Fibrofatty breast tissue Description of Procedure: The patient is a 66-year-old white female diagnosed with a stage IA left breast invasive ductal carcinoma. She was seen first in the radiology department and localization of the area of concern in the left breast was performed as well as periareolar injection of radioactive tracer. The patient was seen in the preoperative area and marked for a donut mastopexy incision. The patient was brought to the operative suite. Following induction of anesthesia the neoprobe was used to interrogate the axilla. Radioactivity was noted to be present. The left breast and axilla were prepped and draped in a sterile fashion. The area of the axilla was approached initially. Using the neoprobe. Greatest radioactivity was identified. An incision was made in the axilla. This was carried down into the deep axillary tissue. An area of greatest radioactivity was identified. This was grasped using an Allis clamp. Using sharp dissection and the Harmonic scalpel the area of concern was removed. This was interrogated and the 10 second count of the sentinel lymph node was 11,887. The background 10 second count was scattered and minimal. After assured that hemostasis was attained the wound was well irrigated. The deep tissues were closed using 3-0 Vicryl suture. The skin was closed using 4-0 Monocryl. Steri- Strips were applied. The area of the breast was approached. The mastopexy incision site was de- epithelialized. The breast tissue was entered and the superior-lateral area. This was dissected to the shaft of the needle. The surrounding tissue was excised. The specimen was painted for orientation. Radiograph of the specimen revealed the area of concern had been removed. Posterior dissection was carried onto the pectoralis muscle fascia. Anteriorly dissection was performed close under the skin. Titanium clips were placed to veronica the cavity. A superior pillar was disected free which was 4 cm x 3 cm. An inferior pillar was formed which was 5 cm x 4 cm. A total of 47 centimeters squared was mobilized. The pillars were brought together using 3-0 Vicryl suture. The rochelle- areolar incision was closed using double-armed 4-0 gortex in a wagon wheel arrangement. The skin was re-enforced using 4-0 nylon suture. 10 mL of 1% lidocaine was used to anesthetize the area around the areolar incision. The patient tolerated the procedure in stable condition. All instrument and sponge counts were correct at the end of the case.
--- NOTE | 2021-05-08 12:12 | USB ---
EXAM: Needle localization with wire placement. CLINICAL HISTORY: Biopsy-proven cancer in the left breast TECHNIQUE: Needle localization with wire placement and post procedure diagnostic 2 view mammogram at request of surgery and surgical excision of area of concern in the left breast. COMPARISON: Prior ultrasound and mammogram February 28, 2021 and older studies. FINDINGS: The procedure of needle localization with wire placement and than surgical excision was exp lained to the patient. Benefits, alternatives, and risks were discussed. An informed consent was th en obtained. Ultrasound-guided localization was chosen as lesion was sampled and well visualized on ultrasound. Th e overlying skin was prepped and draped in usual sterile fashion. Lidocaine is used as anesthetic int o the skin and subcutaneous tissue up to the level of area of concern. A 5 cm needle was used. It w as placed via ultrasound guidance. At this point, wire was placed and the needle was withdrawn. The wire was fixed to patient's skin. Postprocedure diagnostic mammogram performed shows satisfactory pl acement of wire relative to the lesion and biopsy clip. Images were marked for surgeon. The patient tolerated the procedure well without any immediate complication. The patient was kept in the radiology department for short stay after the procedure and then taken to surgery for surgical e xcision. Targeted biopsy clip and wire are identified in specimen mammogram. The patient was kept in hospital for short stay after the procedure and then discharged home in stable condition. IMPRESSION: Successful, uncomplicated needle localization with wire placement and surgical excision o f targeted biopsy clip in the left breast, full pathology results to follow.
--- NOTE | 2021-05-08 12:15 | P.DS ---
Providers Attending physician: Kandi Ortiz Primary care physician: Niurka Wilder Plan - Discharge Summary Discharge Rx Participant: No New Discharge Prescriptions: No Action Biotin 1 cap PO DAILY Vitamin C/Biotin [Hair, Skin and Nails Chew] 1 tab PO DAILY Discharge Medication List Biotin 1 cap PO DAILY 05/03/21 [History] Vitamin C/Biotin [Hair, Skin and Nails Chew] 1 tab PO DAILY 05/03/21 [History] Follow up Appointment(s)/Referral(s): Kandi Ortiz MD [STAFF PHYSICIAN] - 1 Week Activity/Diet/Wound Care/Special Instructions: may shower after 48 hours wear bra at all times do not drive for 24 hours after discharge or if taking narcotic pain medicine Discharge Disposition: HOME SELF-CARE
[2021-05-08 12:20] VITALS: RESP 16; TEMP 97
[2021-05-08 13:41] VITALS: BP 151/85; PULSE 65
--- NOTE | 2021-05-08 13:47 | NM ---
EXAMINATION TYPE: NM sentinel node injection DATE OF EXAM: 05/08/2021 COMPARISON: NONE HISTORY: Left-sided breast cancer. TECHNIQUE AND FINDINGS: The procedure of sentinel lymph node injection was explained to the patient. The benefits, alternatives, and risks were discussed. An informed consent was then obtained. Overlying skin is cleaned with sterile alcohol. Following this, 515 uCi Tc99m Tilmanocept was inject ed in the upper outer aspect of the left nipple intradermally. The patient tolerated the procedure well without any immediate complication. The patient was kept in the radiology department for short stay after the procedure and then taken to surgery for surgical p rocedure what is presumed intraoperative gamma probe will be used for sentinel lymph node detection. IMPRESSION: Left breast radiotracer injection for sentinel node localization as above.
== END 2021-05-08 14:05 | disposition home or self-care (01) ==
LOC: OR 06:22
PROVIDERS: ATTEND Surgery
DX: C50.412 Malignant neoplasm of upper-outer quadrant of left female breast (principal)
CPT/HCPCS: 38505; 88342; 88307; 71046; 77065; 76098; 19285; 38792; C1819; A9520; J2250; J1100; J2405; J0690; J2001; J3010; J1170; J2704; J1644

== ENCOUNTER → 2021-05-17 | Outpatient (CLI) | payer OTHER ==
[2021-05-17 12:58] VITALS: BP 153/94; PULSE 97; RESP 16; TEMP 97
--- NOTE | 2021-05-17 13:01 | P.PN ---
Progress Note - Text Progress Note Date: 05/17/21 Joselyn is a 66 year old white female status post left breast lumpectomy and SNB on 05-08-21. Her pathology revealed lymph node + for micromets; and breast margins (-); tumor size 11 mm. Physical exam: Lungs: Clear Heart: Regular rate and rhythm Incisions: Clean and dry the periareolar and axillary Impression: Patient postop left breast lumpectomy and sentinel node biopsy from [id number] Plan: Suture removal next week Appointment with medical oncology Appointment with radiation oncology CC: Dr. Wilder
== END | disposition home or self-care (01) ==
LOC: WWCWWP 12:35
PROVIDERS: ATTEND Surgery
DX: Z53.9 Procedure and treatment not carried out, unspecified reason (principal)

== ENCOUNTER → 2021-09-05 | Outpatient (CLI) | payer MEDICARE ==
--- NOTE | 2021-09-05 15:28 | BD ---
EXAMINATION TYPE: Axial Bone Density DATE OF EXAM: 09/05/2021 COMPARISON: NONE CLINICAL HISTORY: 66 years year old Female. ICD-10 CODE: C50.412 Breast cancer Height: 5 FT 1 IN Weight: 125 FRAX RISK QUESTIONS: Alcohol (3 or more units per day): NO Family History (Parent hip fracture): NO Glucocorticoids (More than 3mos): NO (Ex: prednisone, prednisolone, methylprednisolone, dexamethasone, and hydrocortisone). History of Fracture in Adulthood: YES Secondary Osteoporosis: 1. Type 1 Diabetes: NO 2. Hyperthyroidism: NO 3. Menopause before 45: NO 4. Malnutrition: NO 5. Chronic liver disease: NO Rheumatoid Arthritis: NO Current Tobacco Use: NO RISK FACTORS HISTORY OF: Surgery to Spine/Hip(right/left)/Wrist (right/left): NO Family History of Osteoporosis: NO Active: YES Diet low in dairy products/other sources of calcium: NO Postmenopausal woman: YES Take estrogen and/or progesterone medications: NO Lost more than 2 inches in height since high school: YES Frequent falls: NO Poor Health: GOOD Hyperparathyroidism: NO Adrenal Insufficiency: NO MEDICATIONS: Additional Medications: HORMONE VIANNEY , BLOOD PRESSURE MEDS, Additional History: BREAST CA 2021 RADIATION ONLY EXAM MEASUREMENTS: Bone mineral densitometry was performed using the [employer] System. Bone mineral density as measured about the Lumbar spine is: ----- L1-L4(G/cm2): 1.151 T Score Values are as follows: ----- L1: -1.2 ----- L2: 0.1 ----- L3: 0.6 ----- L4: -0.6 ----- L1-L4: -0.2 BASELINE Bone mineral density about the R hip (g/cm2): 0.817 Bone mineral density about the L hip (g/cm2): 0.704 T Score values are as follows: -----R Neck: -1.6 -----L Neck: -2.4 -----R Total: -1.6 -----L Total: -2.3 BASELINE FRAX%s: The graph provided illustrates a 12.5 % chance for a major osteoporotic fx and a 2.6 % chance for the hips probability for fx in 10 years time. IMPRESSION: Osteopenia (T Score between -2.5 and -1). There is slightly increased risk of fracture and the patient may be considered for treatment. Re-Screen 2-5 years. NOTE: T-SCORE=SD OF THE YOUNG ADULT MEAN.
== END | disposition home or self-care (01) ==
LOC: RADBDWWP 14:06
PROVIDERS: ATTEND Internal Medicine Hematology & Oncology
DX: Z13.820 Encounter for screening for osteoporosis (principal); C50.412 Malignant neoplasm of upper-outer quadrant of left female breast; R07.81 Pleurodynia
CPT/HCPCS: 77080

== ENCOUNTER → 2021-10-04 | Outpatient (CLI) | payer MEDICARE ==
[2021-10-04 10:52] VITALS: BP 143/86; PULSE 91; RESP 16; TEMP 98.1
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
== END | disposition home or self-care (01) ==
LOC: WWCWWP 10:13
PROVIDERS: ATTEND Surgery
DX: Z53.9 Procedure and treatment not carried out, unspecified reason (principal)

== ENCOUNTER → 2022-02-01 | Outpatient (CLI) | payer MEDICARE ==
--- NOTE | 2022-02-01 13:53 | MM ---
Reason for Exam: Follow-up at short interval from prior study. Last screening mammogram was performed 12 month(s) ago. Patient History: Menarche at age 13. First Full-Term at age 21. Postmenopausal. Breast cancer, left, age 66. Previous chest radiation therapy at age 66. Hormonal Contraceptives for 3 years from age 18 until age 21. 05/08/2021, Lumpectomy on the Left side. Malignant Core Biopsy. 02/28/2021, Malignant Core Biopsy on the left side. 01/04/2020, Benign Core Biopsy on the left side. Prior Study Comparison: 01/25/2021 Bilateral Diagnostic Mammogram, [facility]. 02/28/2021 Left Diagnostic Mammogram, [facility]. 05/08/2021 Left Diagnostic Mammogram, [facility]. Tissue Density: The breast tissue is heterogeneously dense. This may lower the sensitivity of mammography. Findings: Analyzed By CAD. Benign-appearing vascular calcifications bilaterally are redemonstrated. There are some scattered and grouped benign-appearing rounded dystrophic calcifications throughout the right breast redemonstrated. Surgical clips left posterior outer aspect left breast redemonstrated. New surgical clips and skin thickening from treatment change to the left breast are present. New distortion upper aspect left breast presumed posttreatment change. No obvious new mass or suspicious group of microcalcification in either breast. Overall Assessment: Probably benign, BI-RAD 3 Management: Diagnostic Mammogram of the left breast in 6 months. Short-term follow-up left breast to confirm current findings represent new baseline. Results were given to the patient verbally at the time of exam. Electronically signed and approved by: Flo Elizalde M.D.
== END | disposition home or self-care (01) ==
LOC: RADMAMWWP 13:01
PROVIDERS: ATTEND Surgery
DX: C50.912 Malignant neoplasm of unspecified site of left female breast (principal); Z85.3 Personal history of malignant neoplasm of breast; Z78.0 Asymptomatic menopausal state; Z92.3 Personal history of irradiation
CPT/HCPCS: 77066

== ENCOUNTER → 2022-02-01 | Outpatient (CLI) | payer MEDICARE ==
[2022-02-01 14:49] VITALS: BP 139/87; PULSE 77; RESP 16; TEMP 98.4
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
== END ==
LOC: WWCWWP 13:04
PROVIDERS: ATTEND Surgery
DX: Z90.11 Acquired absence of right breast and nipple (principal); Z92.3 Personal history of irradiation; Z79.811 Long term (current) use of aromatase inhibitors; M19.90 Unspecified osteoarthritis, unspecified site

== ENCOUNTER → 2022-06-07 | Outpatient (CLI) | payer MEDICARE ==
[2022-06-07 09:45] VITALS: BP 154/84; PULSE 80; RESP 17; TEMP 98.5
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
== END ==
LOC: WWCWWP 09:35
PROVIDERS: ATTEND Surgery
DX: C50.912 Malignant neoplasm of unspecified site of left female breast (principal); Z85.3 Personal history of malignant neoplasm of breast; M19.90 Unspecified osteoarthritis, unspecified site; N64.89 Other specified disorders of breast; Z17.0 Estrogen receptor positive status [ER+]; Z92.3 Personal history of irradiation

== ENCOUNTER → 2023-02-03 | Outpatient (CLI) | payer MEDICARE ==
--- NOTE | 2023-02-03 09:51 | MM ---
Reason for Exam: Hx of breast cancer, conservation therapy. Last screening mammogram was performed 12 month(s) ago. Patient History: Menarche at age 13. First Full-Term at age 21. Postmenopausal. Breast cancer, left, age 66. Previous chest radiation therapy at age 66. Hormonal Contraceptives for 3 years from age 18 until age 21. 05/08/2021, Lumpectomy on the Left side. Malignant Core Biopsy. 02/28/2021, Malignant Core Biopsy on the left side. 01/04/2020, Benign Core Biopsy on the left side. Prior Study Comparison: 07/24/2020 Left Diagnostic Mammogram, [facility]. 07/24/2020 Left Diagnostic Ultrasound, [facility]. 01/25/2021 Bilateral Diagnostic Mammogram, [facility]. 01/25/2021 Left Diagnostic Ultrasound, [facility]. 02/28/2021 Left Diagnostic Mammogram, [facility]. 05/08/2021 Left Diagnostic Mammogram, [facility]. 02/01/2022 Bilateral MG diagnostic mammo w CAD TABITHA, [facility]. 09/09/2022 Left MG 3D diag mammo w/cad LT, [facility]. Tissue Density: The breast tissue is heterogeneously dense. This may lower the sensitivity of mammography. Findings: Analyzed By CAD. Pattern appears stable. Multiple benign-appearing calcifications are present bilaterally. Postsurgical clips are within the left breast. Surgical markers within the outer left breast. Benign vascular calcifications present bilaterally. No suspicious groups of microcalcifications, spiculated or lobular masses, architectural distortion or other secondary signs of malignancy are mammographically apparent. Overall Assessment: Benign, BI-RAD 2 Management: Diagnostic Mammogram of both breasts in 1 year. A negative mammogram report should not preclude additional follow up of suspicious palpable abnormalities. Patient should continue monthly self breast exam. A clinical breast exam by your physician is recommended on an annual basis and results should be correlated with mammographic findings. Electronically signed and approved by: Moises Masterson D.O. Radiologis
== END | disposition home or self-care (01) ==
LOC: RADMAMWWP 08:55
PROVIDERS: ATTEND Surgery
DX: R92.333 Mammographic heterogeneous density, bilateral breasts (principal); Z85.3 Personal history of malignant neoplasm of breast; Z78.0 Asymptomatic menopausal state
CPT/HCPCS: 77066; G0279; 77062

== ENCOUNTER → 2023-02-27 | Outpatient (CLI) | payer MEDICARE ==
[2023-02-27 09:18] VITALS: BP 106/84; PULSE 88; RESP 18; TEMP 98.4
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
== END ==
LOC: WWCWWP 08:42
PROVIDERS: ATTEND Surgery
DX: Z12.31 Encounter for screening mammogram for malignant neoplasm of breast (principal); C50.912 Malignant neoplasm of unspecified site of left female breast; M19.90 Unspecified osteoarthritis, unspecified site; N64.89 Other specified disorders of breast; Z17.0 Estrogen receptor positive status [ER+]; Z92.3 Personal history of irradiation

== ENCOUNTER 2023-12-17 11:50 | Emergency (ER) | payer MEDICARE ==
[2023-12-17] MEDS ORDERED: RX INFO: IV CONTRAST WAS GIVEN 1 EACH MISC MISCELLANE PRN (12:20)
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
[2023-12-17 13:35] LABS: Basophils % (A) 0 %; Eosinophils # (A) 0.1 k/uL (0-0.7); Eosinophils % (A) 1 %; HCT 40.7 % (34.0-46.0); HGB 13.7 gm/dL (11.4-16.0); Lymphocytes # (A) 0.4 k/uL (1.0-4.8); Lymphocytes % (A) 6 %; MCH 34.6 pg (25.0-35.0); MCHC 33.8 g/dL (31.0-37.0); MCV 102.4 fL (80.0-100.0); Mean Platelet Volume 7.8; Monocytes # (A) 0.4 k/uL (0-1.0); Monocytes % (A) 6 %; Neutrophils # (A) 5.2 k/uL (1.3-7.7); Neutrophils % (A) 86 %; Platelet Count 210 k/uL (150-450); RBC 3.98 m/uL (3.80-5.40); WBC 6.1 k/uL (3.8-10.6)
[2023-12-17 13:39] LABS: Carbon Dioxide 25 mmol/L (22-30); Chloride 99 mmol/L (98-107); Glucose 90 mg/dL (74-99); Potassium 4.2 mmol/L (3.5-5.1); Sodium 134 mmol/L (137-145)
[2023-12-17 13:40] LABS: ALT 23 U/L (4-34); AST 46 U/L (14-36); African American GFR (CKD) >90 (>60 ml/min/1.73 sqM); Albumin 4.7 g/dL (3.5-5.0); Alkaline Phosphatase 90 U/L (38-126); Anion Gap 10 mmol/L; Blood Urea Nitrogen 5 mg/dL (7-17); Calcium 9.3 mg/dL (8.4-10.2); Non-African American GFR(CKD) >90 (>60 ml/min/1.73 sqM); Total Bilirubin 0.5 mg/dL (0.2-1.3); Total Protein 7.1 g/dL (6.3-8.2)
--- NOTE | 2023-12-17 15:10 | CT ---
EXAMINATION TYPE: CT chest w con DATE OF EXAM: 12/17/2023 COMPARISON: No recent comparison studies. Chest x-ray dated 05/08/2021 HISTORY: Abnormal chest xray CT DLP: 223.2 mGycm, Automated exposure control for dose reduction was used. CONTRAST: Performed injected with 100 mL mL of Isovue 370. TECHNIQUE: Axial images were obtained at 5 mm thick sections. Reconstructed images are reviewed on [employer] computer in the coronal plane. FINDINGS: Portion of the thyroid visualized is normal. No suspicious lung nodules or focal infiltrates are present. No enlarged mediastinal or hilar adenopathy is evident. The ascending aorta diameter at the level o f the main pulmonary artery is 2.8 cm. The main pulmonary artery diameter at the bifurcation is 2.[address] sections are obtained through the upper abdomen. Abdomen is essentially unremarkable. Left shoulder repair is evident. Scoliosis is present. IMPRESSION: 1. No suspicious acute changes CT chest. [facility], Workstation: [facility], 12/17/2023 3:08 PM
[2023-12-17 15:36] VITALS: BP 151/93; PULSE 102; RESP 18; TEMP 101.2
== END 2023-12-17 15:40 | disposition home or self-care (01) ==
LOC: EC 11:50
DX: U07.1 COVID-19 (principal)
CPT/HCPCS: 36415; 71260; 80053; 85025; 99283

== ENCOUNTER → 2024-02-02 | Outpatient (CLI) | payer MEDICARE ==
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
== END | disposition home or self-care (01) ==
LOC: RADBDWWP 12:59
PROVIDERS: ATTEND Family Medicine
DX: Z78.0 Asymptomatic menopausal state (principal); M81.8 Other osteoporosis without current pathological fracture
CPT/HCPCS: 77080

== ENCOUNTER → 2024-02-02 | Outpatient (CLI) | payer MEDICARE ==
--- NOTE | 2024-02-02 13:52 | MM ---
Reason for Exam: Hx of breast cancer, conservation therapy. Last screening mammogram was performed 12 month(s) ago. Patient History: Menarche at age 13. First Full-Term at age 21. Postmenopausal. Breast cancer, left, age 66. Previous chest radiation therapy at age 66. Hormonal Contraceptives for 3 years from age 18 until age 21. 05/08/2021, Lumpectomy on the Left side. Malignant Core Biopsy. 02/28/2021, Malignant Core Biopsy on the left side. 01/04/2020, Benign Core Biopsy on the left side. Prior Study Comparison: 11/12/2019 Bilateral Screening Mammogram, [facility]. 11/26/2019 Left Diagnostic Mammogram, [facility]. 01/04/2020 Left Diagnostic Mammogram, [facility]. 07/24/2020 Left Diagnostic Mammogram, [facility]. 01/25/2021 Bilateral Diagnostic Mammogram, [facility]. 02/28/2021 Left Diagnostic Mammogram, [facility]. 05/08/2021 Left Diagnostic Mammogram, [facility]. 02/01/2022 Bilateral MG diagnostic mammo w CAD TABITHA, [facility]. 09/09/2022 Left MG 3D diag mammo w/cad LT, [facility]. 02/03/2023 Bilateral MG 3D diag mammo w/cad TABITHA, [facility]. Tissue Density: The breasts are heterogeneously dense, which may obscure small masses. Findings: Analyzed By CAD. Postoperative changes of left-sided lumpectomy. No evidence for recurrent microcalcifications or mass. Stable benign calcifications seen bilaterally. Overall Assessment: Benign, BI-RAD 2 Management: Diagnostic Mammogram of both breasts in 1 year. . Results were given to the patient verbally at the time of exam. Patient should continue monthly self-breast exams. A clinical breast exam by your physician is recommended on an annual basis. This exam should not preclude additional follow-up of suspicious palpable abnormalities. Note on Anastasiya scores and lifetime risk: 1. A Anastasiya score greater than 3% is considered moderate risk. If this is the case, consider specialist referral to assess eligibility for a risk reducing agent. 2. If overall lifetime risk for the development of breast cancer is 20% or higher, the patient may qualify for future screening with alternating mammogram and breast MRI. [facility], , 02/02/2024 1:50 PM. Electronically signed and approved by: Saúl Pradhan M.D. Radiologis
== END | disposition home or self-care (01) ==
LOC: RADMAMWWP 13:02
PROVIDERS: ATTEND Surgery
DX: R92.333 Mammographic heterogeneous density, bilateral breasts (principal); Z85.3 Personal history of malignant neoplasm of breast; Z78.0 Asymptomatic menopausal state
CPT/HCPCS: 77066; G0279; 77062

== ENCOUNTER 2024-09-13 22:01 | Emergency (ER) | payer MEDICARE ==
[2024-09-13 23:12] VITALS: RESP 16
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
[2024-09-13] MEDS: ACETAMINOPHEN TAB 325 MG TAB PO STA (23:52)
[2024-09-13] MEDS: traMADol 50 MG TAB PO STA (23:52)
[2024-09-13] MEDS: DIPH,PERTUS(ACELL)TETVAC-LF 0.5 ML VIAL IM ONE (23:53)
[2024-09-13] MEDS: KETOROLAC 15 MG/ML 1 ML VIAL IM STA (23:54)
--- NOTE | 2024-09-14 01:55 | XR ---
EXAM: XR Right Tibia and Fibula, 2 Views CLINICAL HISTORY: ITS.REASON XR Reason: caught foot on stair, med. ankle pain TECHNIQUE: Frontal and lateral views of the right tibia and fibula. COMPARISON: No relevant prior studies available. FINDINGS: Bones/joints: Diffuse osseous demineralization. ORIF of the distal fibula. Two lag screws in the medial malleolus. No acute fracture of dislocation. Soft tissues: Unremarkable. No radiopaque foreign body. IMPRESSION: 1. No acute fracture of dislocation. 2. ORIF of the distal fibula. Two lag screws in the medial malleolus.
--- NOTE | 2024-09-14 02:07 | XR ---
EXAM: XR Right Ankle Complete, 3 or More Views CLINICAL HISTORY: ITS.REASON XR Reason: caught foot on stair, med. ankle pain TECHNIQUE: Frontal, lateral and oblique views of the right ankle. COMPARISON: No relevant prior studies available. FINDINGS: Bones/joints: ORIF of the ankle with lateral plate and screw fixation. Two lag screws in the medial malleolus. No radiographic evidence of hardware failure or complication. Diffuse osseous demineralization. No acute fracture. No dislocation. Soft tissues: Unremarkable. IMPRESSION: ORIF of the ankle with lateral plate and screw fixation. Two lag screws in the medial malleolus. No radiographic evidence of hardware failure or complication.
[2024-09-14 02:24] VITALS: BP 147/75; PULSE 74; TEMP 98.2
== END 2024-09-14 02:32 | disposition home or self-care (01) ==
LOC: EC 22:01
DX: S93.401A Sprain of unspecified ligament of right ankle, initial encounter (principal); Z23 Encounter for immunization; W10.9XXA Fall (on) (from) unspecified stairs and steps, initial encounter
CPT/HCPCS: 73590; 73610; 90715; 99283; 90471; 96372; J1885